=== PATIENT | male | born 1970 | race Caucasian/White ===

== ENCOUNTER → 2024-01-04 15:15 | Outpatient (CLI) | payer OTHER, SELFPAY ==
--- NOTE | 2024-01-04 15:21 | DI.RAD.S_ITS ---
PROCEDURE: XR CHEST 2V INDICATIONS: SHORTNESS OF BREATH TECHNIQUE: 2 views of the chest were acquired. COMPARISON: None. FINDINGS: Surgical changes and devices: None. Lungs and pleura: Lungs are clear. No pleural effusions or pneumothorax. Mediastinum: Mediastinal contours are normal. Heart size is normal. Bones and chest wall: No suspicious bony abnormalities. Soft tissues appear unremarkable. IMPRESSION: No acute pulmonary process. Dictated by: Laila Gonzalez M.D. on 01/04/2024 at 17:29 Approved by: Laila Gonzalez M.D. on 01/04/2024 at 17:29
== END ==
PROVIDERS: Referring Provider Chiropractor; Visit Provider Chiropractor
DX: R06.02 Shortness of breath (principal); Z87.891 Personal history of nicotine dependence; J98.8 Other specified respiratory disorders
CPT/HCPCS: 71046; 94060